=== PATIENT | male | born 1995 | race Caucasian/White ===

== ENCOUNTER 2021-06-09 08:35 | Emergency (ER) | payer OTHER ==
[~2021-06-09] VITALS: Ht 170.2 cm; Wt 73.0 kg
[2021-06-09] MEDS ORDERED: [UNRECOGNIZED DRUG - OTHER] (09:16)
[2021-06-09 09:21] VITALS: BP 115/87
[2021-06-09] MEDS ORDERED: TOPUD MT (09:57)
== END 2021-06-09 10:23 | disposition home or self-care (01) ==
LOC: ER 08:35
DX: J06.9 Acute upper respiratory infection, unspecified (principal); Z20.822 Contact with and (suspected) exposure to COVID-19
CPT/HCPCS: 87804; 99283; C9803; U0003; U0005

== ENCOUNTER 2021-06-22 22:27 | Emergency (ER) | payer OTHER ==
[~2021-06-22] VITALS: Ht 170.2 cm; Wt 73.0 kg
[~2021-06-22 22:27] MED LIST: TOPUD MT; [UNRECOGNIZED DRUG - OTHER]
[2021-06-22] MEDS ORDERED: METHYLPREDNISOLONE SOD SUCC 125 MG/2 ML VIAL IM STA (22:49)
[2021-06-22] MEDS ORDERED: IPRATROPIUM BROMIDE (0.02%) 0.5MG/2.5ML NEB HHN STA (22:49)
[2021-06-22] MEDS ORDERED: ALBUTEROL (0.083%) 2.5MG/3ML NEB HHN STA (22:49)
[2021-06-22] MEDS ORDERED: ACETAMINOPHEN 325MG TABLET PO STA (22:49)
[2021-06-23] MEDS ORDERED: ALBU18HF2 IH (00:20)
[2021-06-23] MEDS ORDERED: P20 PO (00:20)
[2021-06-23 00:55] VITALS: BP 119/78
== END 2021-06-23 00:55 | disposition home or self-care (01) ==
LOC: ER 22:27
DX: J06.9 Acute upper respiratory infection, unspecified (principal); J45.901 Unspecified asthma with (acute) exacerbation
CPT/HCPCS: 71045; 94640; 96372; 99283; J2930; Z7610

== ENCOUNTER 2021-12-01 10:35 | Emergency (ER) | payer OTHER ==
[~2021-12-01] VITALS: Ht 167.6 cm; Wt 75.0 kg
[~2021-12-01 10:35] MED LIST changes: +ALBU18HF2 IH; +P20 PO
[2021-12-01 10:50] VITALS: BP 128/89
[2021-12-01] MEDS ORDERED: P20 PO (11:59)
[2021-12-01] MEDS ORDERED: PREDNISONE 20MG TABLET PO ONE (12:00)
== END 2021-12-01 12:25 | disposition home or self-care (01) ==
LOC: ER 10:35
DX: R05.9 Cough, unspecified (principal); J45.909 Unspecified asthma, uncomplicated
CPT/HCPCS: 71045; 99283; J7512